=== PATIENT | male | born 1955 | race Caucasian/White ===

== ENCOUNTER → 2017-08-11 | Outpatient (CLI) | payer MEDICARE ==
[2017-08-11 06:26] LABS: HEMATOCRIT 39.1 % (42.0-52.0); HEMOGLOBIN 13.2 g/dL (13.5-18.0); MEAN CELL VOLUME 99 fl (78-100); MEAN CORPUSCULAR HEMOGLOBIN 33 pg (27-31); MEAN CORPUSCULAR HGB CONC 34 g/dL (33-37); MEAN PLATELET VOLUME 10.6 fl (7.4-10.4); PLATELET COUNT 151 K/mm3 (130-400); RED BLOOD COUNT 3.97 M/mm3 (4.20-5.60); RED CELL DISTRIBUTION WIDTH 12.4 % (11.5-14.5); WHITE BLOOD COUNT 3.3 K/mm3 (4.8-10.8)
[2017-08-11 06:27] LABS: BAND 1 % (0-10); LYMPHOCYTE 23 % (20-51); MONOCYTE 14 % (3-10); NEUTROPHILS 60 % (42-75)
[2017-08-11 07:18] LABS: ERYTHROCYTE SEDIMENTATION RATE 3 mm/hr (0-20)
[2017-08-11 07:21] LABS: ALBUMIN 3.2 g/dL (3.5-5.0); BUN/CREATININE RATIO 21.1 (6.0-26.0); CALCIUM 8.9 mg/dL (8.4-10.2); POTASSIUM 4.5 mmol/L (3.6-5.0); TOTAL BILIRUBIN 0.7 mg/dL (0.2-1.3); TOTAL PROTEIN 5.8 g/dL (6.3-8.2)
[2017-08-11 14:19] LABS: TESTOSTERONE 270 ng/dL (221-716)
[2017-08-13 11:42] LABS: LACOSAMIDE 7.5 mcg/mL (())
== END ==
LOC: LAB 06:16
PROVIDERS: Internal Medicine
DX: D50.9 Iron deficiency anemia, unspecified (principal); E78.00 Pure hypercholesterolemia, unspecified; E03.9 Hypothyroidism, unspecified; M81.0 Age-related osteoporosis without current pathological fracture; R56.9 Unspecified convulsions; N52.9 Male erectile dysfunction, unspecified; R20.2 Paresthesia of skin; K26.7 Chronic duodenal ulcer without hemorrhage or perforation

== ENCOUNTER → 2017-08-13 | Outpatient (CLI) | payer MEDICARE | LOC: RAD 10:01 | DX: T84.030A Mechanical loosening of internal right hip prosthetic joint, initial encounter (principal); S83.141A Lateral subluxation of proximal end of tibia, right knee, initial encounter; X58.XXXA Exposure to other specified factors, initial encounter; M25.462 Effusion, left knee ==

== ENCOUNTER → 2017-09-11 | Outpatient (CLI) | payer MEDICARE ==
[~2017-09-11] VITALS: Wt 43.2 kg
[~2017-09-11] MED LIST: ALENDRONATE SOD70 MG PO; BISMATROL PO; CEPACOL SORE TH1 LO8 MM; CITRUS CALCIUM1 TA1 PO; DESMOPRESSIN0.2 MG PO; DULCOLAX STOOL100 MG PO; FERROUS SULFAT325 M4 PO; GLUCOSAMINE PO; GOOD NEIGHBOR P44 ML NS; LANTISEPTIC113 GM TP; LEADER PAIN RE500 M1 PO; LEVOTHYROXIN0.112 MG PO; LEXAPRO 10MG10 MG PO; MAALOX ADVANCED1 CTB PO; MAPAP MULTI-SYM1 TA1 PO; MELOXICAM15 MG PO; MILK OF MA400 MG/51 PO; MIRALAX17 GM PO; PEPCID 20MG TAB20 MG PO; PRAVACHOL 20MG20 MG PO; ROBAFEN100 MG/51 PO; SULFAZINE500 M1 PO; TRAMADOL 50 MG TAB PO; VIMPAT10 MG/M1 PO; VIMPAT150 MG PO
--- NOTE | 2017-09-11 14:30 | NUR ---
PT AGITATED, UNABLE TO COMMUNICATE VERBALLY, AT THIS TIME DUE TO AGITATION UNABLE TO GET AN 02 SATURATION OR TEMPERATURE, PT'S SKIN IS COOL TO THE TOUCH, DOES NOT APPEAR FEBRILE OR SOB, ALL OTHER VITAL SIGNS OBTAINED
[2017-09-11 14:56] VITALS: BP 114/61
== END ==
LOC: AMSURD 13:55
DX: Z01.812 Encounter for preprocedural laboratory examination (principal); Z01.818 Encounter for other preprocedural examination; M25.551 Pain in right hip

== ENCOUNTER → 2017-09-18 | Outpatient (CLI) | payer MEDICARE ==
[2017-09-11 14:56] VITALS: BP 114/61
[2017-09-18 08:17] LABS: HEMATOCRIT 41.5 % (42.0-52.0); HEMOGLOBIN 13.5 g/dL (13.5-18.0); MEAN CELL VOLUME 99 fl (78-100); MEAN CORPUSCULAR HEMOGLOBIN 32 pg (27-31); MEAN CORPUSCULAR HGB CONC 33 g/dL (33-37); MEAN PLATELET VOLUME 10.3 fl (7.4-10.4); PLATELET COUNT 227 K/mm3 (130-400); RED CELL DISTRIBUTION WIDTH 13.8 % (11.5-14.5); WHITE BLOOD COUNT 5.7 K/mm3 (4.8-10.8)
[2017-09-18 08:58] LABS: LYMPHOCYTE 18 % (20-51); MONOCYTE 8 % (3-10); NEUTROPHILS 72 % (42-75)
[2017-09-18 10:01] LABS: ALBUMIN 3.2 g/dL (3.5-5.0); BUN/CREATININE RATIO 18.9 (6.0-26.0); CALCIUM 9.1 mg/dL (8.4-10.2); POTASSIUM 4.7 mmol/L (3.6-5.0); TOTAL BILIRUBIN 0.5 mg/dL (0.2-1.3)
== END ==
LOC: LAB 07:52
PROVIDERS: Internal Medicine
DX: Z01.818 Encounter for other preprocedural examination (principal); D50.9 Iron deficiency anemia, unspecified; E03.9 Hypothyroidism, unspecified; R06.02 Shortness of breath; E46 Unspecified protein-calorie malnutrition; I25.10 Atherosclerotic heart disease of native coronary artery without angina pectoris; T81.89XA Other complications of procedures, not elsewhere classified, initial encounter

== ENCOUNTER → 2017-10-01 | Outpatient (CLI) | payer MEDICARE ==
[2017-09-11 14:56] VITALS: BP 114/61
== END ==
LOC: LAB 11:30
DX: L03.119 Cellulitis of unspecified part of limb (principal)

== ENCOUNTER → 2017-10-29 | Outpatient (CLI) | payer MEDICARE ==
[2017-09-11 14:56] VITALS: BP 114/61
== END ==
LOC: LAB 06:04
DX: T81.89XA Other complications of procedures, not elsewhere classified, initial encounter (principal)

== ENCOUNTER → 2017-11-02 | Outpatient (CLI) | payer MEDICARE ==
[2017-09-11 14:56] VITALS: BP 114/61
== END ==
LOC: LAB 18:47
DX: L03.113 Cellulitis of right upper limb (principal)

== ENCOUNTER → 2017-12-18 | Outpatient (CLI) | payer MEDICARE ==
[2017-09-11 14:56] VITALS: BP 114/61
[2017-12-18 07:17] LABS: BASO # 0.1 (0.02-0.10); EOS # 0.1 (0.04-0.40); EOS % 1.7 % (0.0-4.0); HEMATOCRIT 43.1 % (42.0-52.0); HEMOGLOBIN 13.8 g/dL (13.5-18.0); LYMPH# 1.3 (1.50-4.00); MEAN CELL VOLUME 103 fl (78-100); MEAN CORPUSCULAR HEMOGLOBIN 33 pg (27-31); MEAN CORPUSCULAR HGB CONC 32 g/dL (33-37); MEAN PLATELET VOLUME 11.4 fl (7.4-10.4); MONO # 0.4 (0.20-0.80); NEU # 2.2 (1.40-6.50); PLATELET COUNT 180 K/mm3 (130-400); RED CELL DISTRIBUTION WIDTH 14.5 % (11.5-14.5); WHITE BLOOD COUNT 4.1 K/mm3 (4.8-10.8)
[2017-12-18 07:29] LABS: ALBUMIN 3.5 g/dL (3.5-5.0); BUN/CREATININE RATIO 37.5 (6.0-26.0); CALCIUM 9.4 mg/dL (8.4-10.2); TOTAL BILIRUBIN 0.3 mg/dL (0.2-1.3)
[2017-12-18 07:41] LABS: POTASSIUM 4.3 mmol/L (3.6-5.0)
[2017-12-18 07:57] LABS: ERYTHROCYTE SEDIMENTATION RATE 12 mm/hr (0-20)
== END ==
LOC: LAB 06:25
PROVIDERS: Internal Medicine
DX: M25.521 Pain in right elbow (principal); G40.909 Epilepsy, unspecified, not intractable, without status epilepticus

== ENCOUNTER → 2018-01-19 | Outpatient (CLI) | payer MEDICARE, MEDICAID ==
[2017-09-11 14:56] VITALS: BP 114/61
== END ==
LOC: RAD 10:43
DX: S59.901A Unspecified injury of right elbow, initial encounter (principal); Q90.9 Down syndrome, unspecified

== ENCOUNTER 2018-01-20 15:45 | Emergency (ER) | payer MEDICARE, MEDICAID ==
[2018-01-20 17:14] VITALS: BP 124/85
== END 2018-01-20 17:17 | disposition home or self-care (01) ==
LOC: ED 15:45
DX: Z03.89 Encounter for observation for other suspected diseases and conditions ruled out (principal); Q90.9 Down syndrome, unspecified; F79 Unspecified intellectual disabilities; G40.909 Epilepsy, unspecified, not intractable, without status epilepticus

== ENCOUNTER → 2018-01-20 | Outpatient (CLI) | payer MEDICARE, MEDICAID ==
[2017-09-11 14:56] VITALS: BP 114/61
[2018-01-20 11:13] LABS: HEMATOCRIT 43.5 % (42.0-52.0); HEMOGLOBIN 13.6 g/dL (13.5-18.0); MEAN CELL VOLUME 100 fl (78-100); MEAN CORPUSCULAR HEMOGLOBIN 31 pg (27-31); MEAN CORPUSCULAR HGB CONC 31 g/dL (33-37); MEAN PLATELET VOLUME 11.4 fl (7.4-10.4); PLATELET COUNT 152 K/mm3 (130-400); RED BLOOD COUNT 4.34 M/mm3 (4.20-5.60); RED CELL DISTRIBUTION WIDTH 15.4 % (11.5-14.5); WHITE BLOOD COUNT 9.3 K/mm3 (4.8-10.8)
[2018-01-20 11:23] LABS: LYMPHOCYTE 7 % (20-51); MONOCYTE 5 % (3-10); NEUTROPHILS 88 % (42-75)
[2018-01-20 11:25] LABS: ALBUMIN 3.7 g/dL (3.5-5.0); ALT/SGPT 41 U/L (21-72); AST-SGOT 37 U/L (17-59); BUN/CREATININE RATIO 17.8 (6.0-26.0); CALCIUM 9.1 mg/dL (8.4-10.2); CARBON DIOXIDE 28 mmol/L (22-30); GLUCOSE 144 mg/dL (75-110); SODIUM 142 mmol/L (137-145); TOTAL BILIRUBIN 0.3 mg/dL (0.2-1.3); TOTAL PROTEIN 8.1 g/dL (6.3-8.2)
[2018-01-20 14:13] LABS: URINE APPEARANCE CLEAR; URINE BILIRUBIN NEGATIVE (NEGATIVE); URINE COLOR YELLOW; URINE GLUCOSE NEGATIVE (NEGATIVE); URINE KETONE NEGATIVE (NEGATIVE); URINE NITRATE NEGATIVE (NEGATIVE); URINE PROTEIN(semi-quant) TRACE mg/dL (NEGATIVE); URINE UROBILINOGEN NORMAL (NORMAL)
[2018-01-20 14:14] LABS: URINE BLOOD NEGATIVE (NEGATIVE); URINE LEUKOCYTE ESTERASE TRACE (NEGATIVE)
== END ==
LOC: LAB 11:01
PROVIDERS: Internal Medicine
DX: J98.11 Atelectasis (principal); R06.02 Shortness of breath; R45.1 Restlessness and agitation

== ENCOUNTER 2018-03-03 18:35 | Emergency (ER) | payer MEDICARE, MEDICAID ==
[~2018-03-03 18:35] MED LIST changes: -CITRUS CALCIUM1 TA1 PO; +DESMOPRESSIN A0.1 MG PO; -DESMOPRESSIN0.2 MG PO; -LEXAPRO 10MG10 MG PO; +LEXAPRO20 M1 PO; -VIMPAT150 MG PO; +[UNRECOGNIZED DRUG - OTHER] PO
[2018-03-03 19:13] LABS: HEMATOCRIT 35.1 % (42.0-52.0); HEMOGLOBIN 10.8 g/dL (13.5-18.0); MEAN CELL VOLUME 98 fl (78-100); MEAN CORPUSCULAR HEMOGLOBIN 30 pg (27-31); MEAN CORPUSCULAR HGB CONC 31 g/dL (33-37); MEAN PLATELET VOLUME 11.5 fl (7.4-10.4); PLATELET COUNT 231 K/mm3 (130-400); RED BLOOD COUNT 3.58 M/mm3 (4.20-5.60); RED CELL DISTRIBUTION WIDTH 17.6 % (11.5-14.5); WHITE BLOOD COUNT 12.7 K/mm3 (4.8-10.8)
[2018-03-03 19:27] LABS: ALBUMIN 3.3 g/dL (3.5-5.0); BUN/CREATININE RATIO 26.2 (6.0-26.0); CALCIUM 8.4 mg/dL (8.4-10.2); POTASSIUM 4.1 mmol/L (3.6-5.0); TOTAL BILIRUBIN 0.3 mg/dL (0.2-1.3); TOTAL PROTEIN 7.3 g/dL (6.3-8.2)
[2018-03-03 19:38] LABS: LYMPHOCYTE 5 % (20-51); MONOCYTE 3 % (3-10); NEUTROPHILS 91 % (42-75)
[2018-03-03] MEDS ORDERED: AZULFIDINE PO (19:52)
[2018-03-03] MEDS ORDERED: DULCOLAX10 M1 RC (19:54)
[2018-03-03] MEDS ORDERED: IPRATROPIUM BROM3 M1 IH (19:55)
[2018-03-03] MEDS ORDERED: FLEET ENEM1 BOT/133 RC (19:56)
[2018-03-03] MEDS ORDERED: FENTANYL1 EAC3 TD (19:56)
[2018-03-03] MEDS ORDERED: NORCO 325 MG-51 TA1 PO (20:02)
[2018-03-03] MEDS ORDERED: SEROQUEL 2525 MG/TAB PO (20:03)
[2018-03-03 21:09] LABS: CALCIUM 7.8 mg/dL (8.4-10.2); POTASSIUM 3.9 mmol/L (3.6-5.0)
[2018-03-03 21:21] LABS: URINE APPEARANCE CLEAR; URINE COLOR YELLOW; URINE PROTEIN(semi-quant) TRACE mg/dL (NEGATIVE)
[2018-03-03 21:22] LABS: URINE BILIRUBIN NEGATIVE (NEGATIVE); URINE BLOOD 50 ery/uL (NEGATIVE); URINE GLUCOSE NEGATIVE (NEGATIVE); URINE KETONE NEGATIVE (NEGATIVE); URINE LEUKOCYTE ESTERASE NEGATIVE (NEGATIVE); URINE NITRATE NEGATIVE (NEGATIVE); URINE UROBILINOGEN NORMAL (NORMAL); URINE WBC 0-1 /hpf (0-3)
[2018-03-03 23:00] VITALS: BP 96/56
== END 2018-03-03 23:00 | disposition short-term general hospital (02) ==
LOC: ED 18:35
PROVIDERS: Nurse Practitioner Primary Care
DX: A41.9 Sepsis, unspecified organism (principal); R06.03 Acute respiratory distress; Z99.3 Dependence on wheelchair; I25.10 Atherosclerotic heart disease of native coronary artery without angina pectoris; E78.5 Hyperlipidemia, unspecified; Q90.9 Down syndrome, unspecified; G40.909 Epilepsy, unspecified, not intractable, without status epilepticus; M62.462 Contracture of muscle, left lower leg; M62.461 Contracture of muscle, right lower leg; Z79.899 Other long term (current) drug therapy
CPT/HCPCS: J0696; J1885; J1956; J7030

== ENCOUNTER → 2018-03-17 | Outpatient (REF) | payer SELFPAY ==
[2018-03-03 23:00] VITALS: BP 96/56
[~2018-03-17] MED LIST changes: +AZULFIDINE PO; +DULCOLAX10 M1 RC; +DURAGESIC25 MCG/PAT TD; +FENTANYL1 EAC3 TD; +FLEET ENEM1 BOT/133 RC; +IPRATROPIUM BROM3 M1 IH; +NORCO 325 MG-51 TA1 PO; +SEROQUEL 2525 MG/TAB PO
[2018-03-17 15:00] LABS: BASO # 0.1 (0.02-0.10); EOS % 0.8 % (0.0-4.0); HEMATOCRIT 36.5 % (42.0-52.0); HEMOGLOBIN 10.8 g/dL (13.5-18.0); MEAN CELL VOLUME 98 fl (78-100); MEAN CORPUSCULAR HEMOGLOBIN 29 pg (27-31); MEAN CORPUSCULAR HGB CONC 30 g/dL (33-37); MONO # 0.3 (0.20-0.80); NEU # 3.7 (1.40-6.50); PLATELET COUNT 308 K/mm3 (130-400); RED BLOOD COUNT 3.71 M/mm3 (4.20-5.60); RED CELL DISTRIBUTION WIDTH 17.9 % (11.5-14.5); WHITE BLOOD COUNT 5.2 K/mm3 (4.8-10.8)
[2018-03-17 15:13] LABS: ALBUMIN 3.4 g/dL (3.5-5.0); BUN/CREATININE RATIO 24.8 (6.0-26.0); CALCIUM 9.3 mg/dL (8.4-10.2); POTASSIUM 4.7 mmol/L (3.6-5.0); TOTAL BILIRUBIN 0.2 mg/dL (0.2-1.3); TOTAL PROTEIN 7.6 g/dL (6.3-8.2)
[2018-03-17 16:16] LABS: MEAN PLATELET VOLUME 12.3 fl (7.4-10.4)
[2018-03-17 16:17] LABS: ERYTHROCYTE SEDIMENTATION RATE 104 mm/hr (0-20)
[2018-03-17 23:28] LABS: TESTOSTERONE 77 ng/dL (221-716)
== END ==
LOC: LAB 14:12
PROVIDERS: Internal Medicine
DX: N52.9 Male erectile dysfunction, unspecified (principal); D50.9 Iron deficiency anemia, unspecified

== ENCOUNTER 2018-03-26 13:03 | Emergency (ER) | payer MEDICARE, MEDICAID ==
[~2018-03-26 13:03] MED LIST changes: -DURAGESIC25 MCG/PAT TD
[2018-03-26 13:51] LABS: HEMATOCRIT 36.4 % (42.0-52.0); HEMOGLOBIN 10.7 g/dL (13.5-18.0); MEAN CELL VOLUME 99 fl (78-100); MEAN CORPUSCULAR HEMOGLOBIN 29 pg (27-31); PLATELET COUNT 282 K/mm3 (130-400); RED BLOOD COUNT 3.67 M/mm3 (4.20-5.60); RED CELL DISTRIBUTION WIDTH 18.8 % (11.5-14.5); WHITE BLOOD COUNT 14.9 K/mm3 (4.8-10.8)
[2018-03-26 14:13] LABS: MEAN CORPUSCULAR HGB CONC 29 g/dL (33-37)
[2018-03-26 14:16] LABS: ALBUMIN 3.4 g/dL (3.5-5.0); BUN/CREATININE RATIO 20.8 (6.0-26.0); CALCIUM 9.1 mg/dL (8.4-10.2); TOTAL BILIRUBIN 0.3 mg/dL (0.2-1.3); TOTAL PROTEIN 7.4 g/dL (6.3-8.2)
[2018-03-26 14:33] LABS: BAND 12 % (0-10); LYMPHOCYTE 3 % (20-51); MONOCYTE 3 % (3-10); NEUTROPHILS 82 % (42-75)
[2018-03-26 14:34] LABS: HYPOCHROMIA 1+
[2018-03-26] MEDS ORDERED: DURAGESIC25 MCG/PAT TD (15:10)
[2018-03-26 19:13] VITALS: BP 129/72
== END 2018-03-26 17:08 | disposition short-term general hospital (02) ==
LOC: ED 13:03
PROVIDERS: Physician Assistant
DX: A41.9 Sepsis, unspecified organism (principal); J18.9 Pneumonia, unspecified organism; R06.03 Acute respiratory distress; Q90.9 Down syndrome, unspecified; G40.909 Epilepsy, unspecified, not intractable, without status epilepticus; Z79.899 Other long term (current) drug therapy
CPT/HCPCS: J1940; J2270; J2543; J7030